=== PATIENT | male | born 1975 | race Caucasian/White ===

== ENCOUNTER → 2019-05-24 17:20 | Outpatient (CLI) | payer OTHER, SELFPAY ==
[2019-05-24 18:00] LABS: Add Manual Diff / Slide Review NO; Basophils Absolute Auto 100 /uL (0-100); Eosinophils Absolute Auto 200 /uL (0-450); Eosinophils Percent Auto 2.7 % (2-4); Hematocrit 44.3 % (41-53); Lymphocytes Absolute Auto 2100 /uL (1100-4500); Lymphocytes Percent Auto 28.1 % (25-40); Mean Corpuscular HGB Conc 33.8 % (30-36); Mean Corpuscular Hemoglobin 31.7 PG (26-34); Mean Corpuscular Volume 93.6 fL (80-100); Monocytes Absolute Auto 700 /uL (0-900); Monocytes Percent Auto 9.3 % (3-14); Neutrophils Absolute Auto 4500 /uL (1500-7000); Neutrophils Percent Auto 58.9 % (50-75); Platelet Count 231 X10^3/uL (150-400); Red Blood Cell Count 4.74 X10^6/uL (4.5-5.9); Red Cell Distribution Width 12.3 % (11.6-14.8); White Blood Cell Count 7.6 X10^3/uL (4.5-11.0)
[2019-05-24 18:20] LABS: Uric Acid 7.8 mg/dL (3.5-8.5)
[2019-05-24 18:33] LABS: Erythrocyte Sedimentation Rate 6 MM/HR (0-15)
== END ==
PROVIDERS: PCP Nurse Practitioner Family; Visit Provider Podiatrist
DX: M10.9 Gout, unspecified (principal)
CPT/HCPCS: 36415; 84550; 85025; 85651

== ENCOUNTER → 2021-02-18 09:05 | Outpatient (CLI) | payer OTHER, SELFPAY ==
--- NOTE | 2021-02-18 09:09 | DI.ECHO.S_ITS ---
[facility] +---------+ : : [address] : [place] : : : : [id number] : : : : Phone: [phone]+ Echocardiogram Report + + :Name: MICHELLE RODRÍGUEZ Study Date: 02/18/2021 Height: 72 in : :[facility] ReadingLocation: Weight: 199 lb : : Gender: Male BSA: 2.1 m2 : :: 1975 Age: 45 yrs BP: 118/72 mmHg: :Reason For Study: CARDIAC MURMUR : :Ordering Physician: TRISTIN, : :BOGDAN Performed By: Arelis Cornejo : :Referring: BOGDAN CROW : + + Interpretation Summary 1) Normal left ventricular thickness, size, wall motion, and systolic function (EF 55-60%). 2) Normal right ventricular size and function. 3) No significant valvular abnormalities. 4) No prior Echo available for comparison. Procedure: A two-dimensional transthoracic echocardiogram with color flow and Doppler was performed. The study quality was technically adequate. There is no prior echocardiogram noted for this patient. The patient was in sinus rhythm with heart rates between 62-75 bpm during the exam. Left Ventricle: The left ventricle is normal in size and wall thickness. The ejection fraction is estimated to be 55-60%. Diastolic parameters suggest probable normal left ventricular diastolic function and normal filling pressures. Right Ventricle: The right ventricle is normal in size and function. Atria: Both atria are normal in size. There is no Doppler evidence for an interatrial shunt. Mitral Valve: The mitral valve is normal in structure and function. There is mild mitral regurgitation. Aortic Valve: The aortic valve is trileaflet. The aortic valve opens well. There is no aortic valve stenosis. There is trace aortic regurgitation. Tricuspid Valve: The tricuspid valve is normal in structure and function. There is trace tricuspid regurgitation. Pulmonic Valve: The pulmonic valve leaflets are thin and pliable; valve motion is normal. There is no pulmonic valvular regurgitation. Great Vessels: The aortic root is normal size. The dimensions of the ascending aorta are normal. The IVC is of normal diameter and collapses greater than 50% with a sniff. This suggests a low right atrial pressure of 3 mm Hg. Pericardium/ Pleura There is no pericardial effusion. There is no pleural effusion. MMode/2D Measurements & Calculations LVIDd: 5.1 cm LVOT diam: 2.2 cm LVIDs: 3.7 cm Ao root diam: 3.2 cm FS: 27.5 % asc Aorta Diam: 3.1 cm EPSS: 0.68 cm Ao Arch Diam (Prox Trans): 2.6 cm IVSd: 0.79 cm LVPWd: 0.84 cm LV hadley. diameter/BSA (cm/m^2): 2.4 LV sys. diameter/BSA (cm/m^2): 1.7 LA A2 area: 18.9 cm2 RA long axis: 5.3 cm LA A4 area: 16.7 cm2 RA area: 16.0 cm2 LA length (vol): 5.7 cm RA vol: 41.2 ml LA vol: 47.1 ml RA : 19.4 ml/m2 LA vol index: 22.1 ml/m2 IVC diam: 1.5 cm RVD1 (basal): 3.1 cm TAPSE: 2.1 cm Doppler Measurements & Calculations Ao V2 max: 105.2 cm/sec LVOT Max Gonzales: 82.9 cm/sec Ao V2 mean: 70.6 cm/sec LV V1 max P.8 mmHg Ao max P.4 mmHg LV V1 VTI: 17.9 cm Ao mean P.3 mmHg CHARLES(I,D): 3.3 cm2 Ao V2 VTI: 21.0 cm CHARLES(V,D): 3.1 cm2 sev ratio: 0.85 CHARLES indexed to BSA (cm^2/m^2): 1.6 MV E max gonzales: 65.2 cm/sec PA V2 max: 95.2 cm/sec MV A max gonzales: 51.4 cm/sec PA V2 mean: 62.0 cm/sec MV E/A: 1.3 PA mean P.8 mmHg Med Peak E' Gonzales: 7.9 cm/sec PA pr(Accel): 37.9 mmHg E/E' med: 8.2 Lat Peak E' Gonzales: 14.2 cm/sec E/E' lat: 4.6 E/e' average: 6.4 MV dec time: 0.19 sec SV(LVOT): 69.7 ml Reading Physician:12:52 PM
[2021-02-18 09:37] LABS: Add Manual Diff / Slide Review NO; Basophils Absolute Auto 100 /uL (0-100); Basophils Percent Auto 1.1 % (0-2); Eosinophils Absolute Auto 200 /uL (0-450); Eosinophils Percent Auto 3.1 % (2-4); Hematocrit 45.2 % (41-53); Hemoglobin 15.6 g/dL (13.5-17.5); Lymphocytes Absolute Auto 1500 /uL (1100-4500); Lymphocytes Percent Auto 29.5 % (25-40); Mean Corpuscular HGB Conc 34.5 % (30-36); Mean Corpuscular Hemoglobin 32.4 PG (26-34); Mean Corpuscular Volume 94.1 fL (80-100); Monocytes Absolute Auto 500 /uL (0-900); Monocytes Percent Auto 9.7 % (3-14); Neutrophils Absolute Auto 2800 /uL (1500-7000); Neutrophils Percent Auto 56.6 % (50-75); Platelet Count 200 X10^3/uL (150-400); Red Cell Distribution Width 12.1 % (11.6-14.8)
[2021-02-18 09:39] LABS: Hemoglobin A1C% w Est Avg Glu 5.4 % (4.0-6.0)
[2021-02-18 10:37] LABS: Alanine Aminotransferase 27 IU/L (<50); Albumin 4.4 g/dL (3.5-5.0); Albumin Globulin Ratio 1.4 (1.0-2.8); Alkaline Phosphatase 41 U/L (38-126); Aspartate Aminotransferase 31 IU/L (17-59); BUN Creatinine Ratio 12.6 (6-22); Bilirubin Total 0.6 mg/dL (0.2-1.3); Blood Urea Nitrogen 11 mg/dL (9-20); Calcium 9.7 mg/dL (8.4-10.2); Carbon Dioxide 25 mmol/L (22-32); Chloride 105 mmol/L (98-107); Cholesterol 183 mg/dL (140-199); Estimated Glomerular Filt Rate > 60.0 mL/min (>60); Globulin 3.2 g/dL (1.7-4.1); Glucose 95 mg/dL (70-100); HDL Cholesterol 52 mg/dL (40-60); HEMOLYSIS < 15 (0-50); LDL Cholesterol Calculated 70 mg/dL (<100); Potassium 4.5 mmol/L (3.4-5.1); Sodium 138 mmol/L (137-145); Total Protein 7.6 g/dL (6.3-8.2); Triglycerides 307 mg/dL (35-150)
== END ==
PROVIDERS: PCP Physician Assistant; Referring Provider Physician Assistant; Visit Provider Physician Assistant
DX: Z13.220 Encounter for screening for lipoid disorders (principal); I34.0 Nonrheumatic mitral (valve) insufficiency; R01.1 Cardiac murmur, unspecified; Z83.3 Family history of diabetes mellitus
CPT/HCPCS: 36415; 80053; 80061; 83036; 85025; 93306

== ENCOUNTER → 2022-11-10 10:05 | Outpatient (CLI) | payer OTHER, SELFPAY ==
[2022-11-10 10:24] LABS: Add Manual Diff / Slide Review NO; Basophils Absolute Auto 100 /uL (0-100); Basophils Percent Auto 1.1 % (0-2); Eosinophils Absolute Auto 100 /uL (0-450); Eosinophils Percent Auto 2.8 % (2-4); Hemoglobin 14.7 g/dL (13.5-17.5); Lymphocytes Absolute Auto 1300 /uL (1100-4500); Lymphocytes Percent Auto 28.1 % (25-40); Mean Corpuscular HGB Conc 34.1 % (30-36); Mean Corpuscular Hemoglobin 32.4 PG (26-34); Mean Corpuscular Volume 95.1 fL (80-100); Monocytes Absolute Auto 600 /uL (0-900); Monocytes Percent Auto 12.4 % (3-14); Neutrophils Absolute Auto 2500 /uL (1500-7000); Neutrophils Percent Auto 55.6 % (50-75); Platelet Count 190 X10^3/uL (150-400); Red Blood Cell Count 4.53 X10^6/uL (4.5-5.9); Red Cell Distribution Width 12.5 % (11.6-14.8); White Blood Cell Count 4.5 X10^3/uL (4.5-11.0)
[2022-11-10 10:31] LABS: Hemoglobin A1C% w Est Avg Glu 5.2 % (4.0-6.0)
[2022-11-10 10:40] LABS: Alanine Aminotransferase 29 IU/L (<50); Albumin 4.2 g/dL (3.5-5.0); Albumin Globulin Ratio 1.3 (1.0-2.8); Alkaline Phosphatase 43 U/L (38-126); Aspartate Aminotransferase 27 IU/L (17-59); BUN Creatinine Ratio 17.3 (6-22); Bilirubin Total 0.9 mg/dL (0.2-1.3); Blood Urea Nitrogen 14 mg/dL (9-20); Calcium 8.8 mg/dL (8.4-10.2); Carbon Dioxide 27 mmol/L (22-32); Chloride 102 mmol/L (98-107); Cholesterol 185 mg/dL (140-199); Estimated Glomerular Filt Rate > 60 mL/min (>60); Globulin 3.3 g/dL (1.7-4.1); Glucose 92 mg/dL (70-100); HDL Cholesterol 59 mg/dL (40-60); HEMOLYSIS < 15 (0-50); LDL Cholesterol Calculated 93 mg/dL (<100); Potassium 4.4 mmol/L (3.4-5.1); Sodium 138 mmol/L (137-145); Total Protein 7.5 g/dL (6.3-8.2); Triglycerides 164 mg/dL (35-150)
[2022-11-10 13:46] LABS: TSH w/ Reflex to FT4 2.33 uIU/mL (0.47-4.68)
== END ==
PROVIDERS: PCP Family Medicine; Referring Provider Family Medicine; Visit Provider Family Medicine
DX: Z13.29 Encounter for screening for other suspected endocrine disorder (principal); J45.909 Unspecified asthma, uncomplicated; R73.01 Impaired fasting glucose; E78.1 Pure hyperglyceridemia
CPT/HCPCS: 36415; 80053; 80061; 83036; 84443; 85025

== ENCOUNTER → 2023-07-11 18:25 | Outpatient (CLI) | payer OTHER, SELFPAY ==
[2023-07-11 19:01] LABS: BUN Creatinine Ratio 15.9 (6-22); Blood Urea Nitrogen 13 mg/dL (9-20); Calcium 8.9 mg/dL (8.4-10.2); Carbon Dioxide 26 mmol/L (22-32); Chloride 105 mmol/L (98-107); Estimated Glomerular Filt Rate > 60 mL/min (>60); Glucose 105 mg/dL (70-100); HEMOLYSIS 21 (0-50); Potassium 4.2 mmol/L (3.4-5.1); Sodium 137 mmol/L (137-145)
== END ==
PROVIDERS: PCP Family Medicine; Visit Provider Physician Assistant
DX: U07.1 COVID-19 (principal)
CPT/HCPCS: 80048

== ENCOUNTER → 2024-07-25 14:07 | Outpatient (CLI) | payer OTHER, SELFPAY ==
[2024-07-25 14:52] LABS: Add Manual Diff / Slide Review NO; Basophils Absolute Auto 100 /uL (0-100); Basophils Percent Auto 1.3 % (0-2); Eosinophils Absolute Auto 0 /uL (0-450); Eosinophils Percent Auto 0.7 % (2-4); Hemoglobin 15.2 g/dL (13.5-17.5); Lymphocytes Absolute Auto 1800 /uL (1100-4500); Lymphocytes Percent Auto 27.9 % (25-40); Mean Corpuscular HGB Conc 34.5 % (30-36); Mean Corpuscular Hemoglobin 32.4 PG (26-34); Mean Corpuscular Volume 93.9 fL (80-100); Monocytes Absolute Auto 700 /uL (0-900); Monocytes Percent Auto 10.7 % (3-14); Neutrophils Absolute Auto 3900 /uL (1500-7000); Neutrophils Percent Auto 59.4 % (50-75); Platelet Count 240 X10^3/uL (150-400); Red Blood Cell Count 4.68 X10^6/uL (4.5-5.9); Red Cell Distribution Width 12.8 % (11.6-14.8); White Blood Cell Count 6.6 X10^3/uL (4.5-11.0)
[2024-07-25 15:29] LABS: HEMOLYSIS < 15 (0-50)
[2024-07-25 15:38] LABS: Alanine Aminotransferase 29 IU/L (<50); Albumin 4.4 g/dL (3.5-5.0); Albumin Globulin Ratio 1.5 (1.0-2.8); Alkaline Phosphatase 48 U/L (38-126); Aspartate Aminotransferase 29 IU/L (17-59); BUN Creatinine Ratio 17.7 (6-22); Bilirubin Total 0.7 mg/dL (0.2-1.3); Blood Urea Nitrogen 17 mg/dL (9-20); Calcium 9.8 mg/dL (8.4-10.2); Carbon Dioxide 28 mmol/L (22-32); Chloride 104 mmol/L (98-107); Estimated Glomerular Filt Rate > 60 mL/min (>60); Glucose 113 mg/dL (70-100); Potassium 4.4 mmol/L (3.4-5.1); Sodium 138 mmol/L (137-145); Total Protein 7.4 g/dL (6.3-8.2)
[2024-07-25 16:40] LABS: Prostate Specific Antigen 2.21 ng/mL (0.10-4.00)
== END ==
PROVIDERS: PCP Family Medicine; Referring Provider Family Medicine; Visit Provider Family Medicine
DX: Z00.00 Encounter for general adult medical examination without abnormal findings (principal); F41.9 Anxiety disorder, unspecified
CPT/HCPCS: 36415; 80053; 84153; 85025

== ENCOUNTER 2025-02-23 09:27 | Day surgery (SDC) | payer OTHER, SELFPAY ==
[2025-02-23 09:49] VITALS: BP 126/74; PULSE 69; RESP 14; TEMP 36.4; O2SAT 99
[2025-02-23] MEDS: LACTATED RINGERS 1,000 ML 42 ML IV (09:57)
--- NOTE | 2025-02-23 10:39 | PM.HP.IH.1 ---
History of Present Illness History of Present Illness Date Patient Seen: 02/23/25 Time Patient Seen: 10:39 Chief complaint: Colonoscopy Narrative: Omar is a 49-year-old man here for his first screening colonoscopy. No family history of colon cancer. No rectal bleeding or melena. PENDING SALE TO [facility] Medical History Hyperglycemia Well adult exam Preventative health care Depression Social History Smoking Status: Former smoker Meds Home Medications and Allergies Home Medications Medication Instructions Recorded Confirmed Type bupropion HCl 300 mg 24 hr tablet, 300 mg PO DAILY 04/20/24 07/28/24 History extended release fluticasone 250 mcg-salmeterol 50 1 ea inhalation BID 07/28/24 07/28/24 History mcg/dose blistr powdr for inhalation ([facility]) sodium,potassium,mag sulfates 17.5 See Rx Instructions PO .COMPLEX 01/30/25 Rx gram-3.13 gram-1.6 gram oral soln #354 mL (Suprep Bowel Prep Kit) Allergies Allergy/AdvReac Type Severity Reaction Status Date / Time No Known Drug Allergies Allergy Unverified 07/28/24 14:38 Exam Vital Signs (past 8 hours): - 02/23/25 09:49 Temperature 97.6 F Pulse Rate 69 Respiratory Rate 14 Blood Pressure 126/74 Pulse Oximetry 99 Oxygen Delivery Method Room Air Oxygen Delivery Method Room Air Const General: healthy appearing Assessment & Plan Assessment and plan (1) Colon cancer screening: Status: Acute Plan Colonoscopy Time-Based Coding :: [TOTAL MINUTES] spent with patient and on the chart (including review of chart, obtaining history, exam, reviewing outside data, placing orders, documenting exam and treatment plan, and counseling patient) on [DATE]. [facility] Document charge(s): No
[2025-02-23 11:08] VITALS: BP 117/70; PULSE 79; RESP 13; TEMP 36.2; O2SAT 99
--- NOTE | 2025-02-23 11:10 | PM.OP.COLON ---
Operative Date/Time/Diagnoses Date of procedure: 02/23/25 Time of procedure: 11:10 Pre-op diagnosis: Colon cancer screening Post-op diagnosis: same Procedure & Clinicians Study performed: Colonoscopy Same procedure as scheduled: Yes Surgeon: Korey Holliday Procedure Notes Procedure in detail: Surgeon: Korey Holldiay MD Anesthesia: Marisa Hagan CRNA Procedure: The patient was brought to the endoscopy suite, placed in left lateral decubitus position. The patient was connected to monitoring devices. A time-out was performed. Sedation was administered. Once the patient was adequately sedated, a digital rectal exam was performed and was normal. The scope was then inserted and advanced to the cecum where the appendiceal orifice was identified and photographed. The scope was then slowly withdrawn over greater than 6 minutes. The mucosa was thoroughly inspected. No abnormalities were found. The scope was retroflexed in the rectum. The scope was straightened and removed. The patient was awakened and brought to recovery. Scope withdrawal time: 6 minutes Sedation time: 12 minutes EBL: 0 Findings: Normal colon Post-procedure Recommendations: Colonoscopy in 10 years Disposition: PACU
[2025-02-23 11:13] VITALS: BP 117/78; PULSE 72; RESP 22; TEMP 36.2; O2SAT 98
== END 2025-02-23 11:20 | disposition home or self-care (01) ==
PROVIDERS: PCP Family Medicine; Referring Provider Surgery; Visit Provider Surgery
PROC: 0DJD8ZZ Inspection of Lower Intestinal Tract, Via Natural or Artificial Opening Endoscopic (ICD-10-PCS; CPT 45378; principal; 2025-02-23 10:30)
DX: Z12.11 Encounter for screening for malignant neoplasm of colon (principal)
CPT/HCPCS: 45378

== ENCOUNTER → 2025-08-19 08:59 | Outpatient (CLI) | payer OTHER, SELFPAY ==
[2025-08-19 10:38] LABS: Hemoglobin A1C% w Est Avg Glu 5.4 % (4.0-6.0)
[2025-08-19 11:06] LABS: Alanine Aminotransferase 24 IU/L (<50); Albumin 4.7 g/dL (3.5-5.0); Albumin Globulin Ratio 1.6 (1.0-2.8); Alkaline Phosphatase 44 U/L (38-126); Blood Urea Nitrogen 12 mg/dL (9-20); Calcium 9.5 mg/dL (8.4-10.2); Carbon Dioxide 23 mmol/L (22-32); Chloride 105 mmol/L (98-107); Cholesterol 185 mg/dL (140-199); Estimated Glomerular Filt Rate > 60 mL/min (>60); Globulin 2.9 g/dL (1.7-4.1); Glucose 98 mg/dL (70-99); HDL Cholesterol 49 mg/dL (40-60); HEMOLYSIS < 15 (0-50); Potassium 4.2 mmol/L (3.4-5.1); Sodium 139 mmol/L (137-145); Total Protein 7.6 g/dL (6.3-8.2); Triglycerides 272 mg/dL (35-150)
== END ==
PROVIDERS: PCP Family Medicine; Referring Provider Family Medicine; Visit Provider Family Medicine
DX: Z00.00 Encounter for general adult medical examination without abnormal findings (principal); R73.9 Hyperglycemia, unspecified; Z13.220 Encounter for screening for lipoid disorders; Z12.5 Encounter for screening for malignant neoplasm of prostate
CPT/HCPCS: 36415; 80053; 80061; 83036; G0103